=== PATIENT | male | born 1990 | race Caucasian/White ===

== ENCOUNTER 2017-03-26 08:51 | Emergency (ER) | payer MEDICAID | END 2017-03-26 14:00 | disposition home or self-care (01) | LOC: D.ER 08:51 | DX: S29.9XXA Unspecified injury of thorax, initial encounter (principal); X58.XXXA Exposure to other specified factors, initial encounter; Y93.55 Activity, bike riding; Y92.89 Other specified places as the place of occurrence of the external cause; S49.92XA Unspecified injury of left shoulder and upper arm, initial encounter; F17.200 Nicotine dependence, unspecified, uncomplicated ==

== ENCOUNTER 2017-04-16 07:16 | Emergency (ER) | payer MEDICAID | END 2017-04-16 08:40 | disposition home or self-care (01) | LOC: D.ER 07:16 | DX: R07.89 Other chest pain (principal); F17.200 Nicotine dependence, unspecified, uncomplicated ==

== ENCOUNTER → 2017-05-02 16:56 | Outpatient (CLI) | payer BC | END | disposition home or self-care (01) | LOC: D.CT 16:56 | DX: R10.9 Unspecified abdominal pain (principal) ==

== ENCOUNTER 2018-04-24 20:16 | Emergency (ER) | payer BC | END 2018-04-24 20:50 | disposition left against medical advice (07) | LOC: D.ER 20:16 | DX: S99.921A Unspecified injury of right foot, initial encounter (principal); W13.8XXA Fall from, out of or through other building or structure, initial encounter; Y93.89 Activity, other specified; Y92.9 Unspecified place or not applicable ==